=== PATIENT | female | born 1970 | race American Indian/Alaskan Native ===

== ENCOUNTER 2018-01-16 06:53 | Day surgery (SDC) | payer BC, OTHER ==
[~2018-01-16 06:53] MED LIST: ADRENALIN IV ONE; NACL 0.9% IR ONE
[2018-01-16] MEDS ORDERED: DIPRIVAN 10 MG/ML IV ONE (07:40)
[2018-01-16] MEDS ORDERED: DILAUDID ONE (07:42)
[2018-01-16] MEDS ORDERED: XYLOCAINE CARDIAC IV ONE (07:46)
--- NOTE | 2018-01-16 08:19 | Anesthesia Consultation ---
Anesthesia Consult and Med Hx Date of service: 01/16/18 - Airway Anesthetic Teeth Evaluation: Good, Partials ROM Head & Neck: Adequate Mental/Hyoid Distance: Adequate Mallampati Class: Class I Intubation Access Assessment: Good - Pulmonary Exam CTA: Yes - Cardiac Exam Cardiac Exam: RRR - Pre-Operative Health Status ASA Pre-Surgery Classification: ASA3 Proposed Anesthetic Plan: General - Pre-Anesthesia Comment Pre-Anesthesia Comments: upper partial - Pulmonary Hx Smoking: No Hx Asthma: No Hx Respiratory Symptoms: No SOB: No COPD: No Home Oxygen Therapy: No Hx Pneumonia: Yes (2013- SCAR TISSUE RIGHT LUNG) Hx Sleep Apnea: No (YUSUF PRE SCREEN LOW RISK) - Cardiovascular System Hx Hypertension: Yes (X 15 YRS) - Central Nervous System Hx Seizures: No 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) Hx Back Pain: Yes (NECK AND BACK PAIN) Hx Psychiatric Problems: Yes (HALLUCINATIONS) - Gastrointestinal Hx Ulcer: No Hx Gastroesophageal Reflux Disease: No - Endocrine Hx Renal Disease: No Hx Cirrhosis: No (HEPATIC ANGIOENDOTHELIOMA / LIVER DISEASE) Hx Liver Disease: Yes Hx Insulin Dependent Diabetes: No Hx Non-Insulin Dependent Diabetes: No Hx Thyroid Disease: No - Hematic Hx Anemia: Yes Hx Sickle Cell Disease: No - Other Systems Hx 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
[2018-01-16] MEDS ORDERED: LACTATED RINGERS 1,000 ML IV SCH (08:34)
[2018-01-16] MEDS ORDERED: SUBLIMAZE ONE (08:55)
[2018-01-16] MEDS ORDERED: ANCEF/STERILE WATER 2 GM/20 ML IV NR (09:00)
[2018-01-16] MEDS ORDERED: VERSED IV NR (09:26)
[2018-01-16] MEDS ORDERED: XYLOCAINE 1% 20 mL INFILTRATI SCH (09:30)
[2018-01-16] MEDS ORDERED: ADRENALIN ONE (09:45)
[2018-01-16] MEDS ORDERED: ADRENALIN IV ONE (09:57)
[2018-01-16] MEDS ORDERED: NACL 0.9% IR ONE (09:57)
[2018-01-16] MEDS ORDERED: NEOSTIGMINE ONE (11:24)
[2018-01-16] MEDS ORDERED: ROBINUL ONE (11:24)
[2018-01-16] MEDS ORDERED: ZOFRAN ONE (11:24)
--- NOTE | 2018-01-16 11:38 | Short Stay Summary ---
Short Stay Documentation Date of service: 01/16/18 - History H&P: obtained from office - Allergies and Medications Current Medications: Allergies adhesive tape Allergy (Verified 06/02/16 16:21) Hives oxycodone HCl [From Percocet] Allergy (Verified 06/02/16 16:21) Hives Home Medications Medication Instructions Recorded Confirmed Last Taken Type traMADol [Ultram 50 MG tab] 50 mg PO Q6HR PRN #30 tablet 03/06/16 01/09/1801/15 Rx ALPRAZolam [Xanax Xr] 2 mg PO PRN PRN 01/09/18 01/09/18 01/15/18 History Aspirin [Lo-Dose Aspirin EC] 81 mg PO DAILY 01/09/18 01/09/18 01/15/18 History AtorvaSTATin [Lipitor] 20 mg PO QHS 01/09/18 01/09/18 01/15/18 History FLUoxetine HCL [PROzac] 80 mg PO QDAY 01/09/18 01/09/18 01/15/18 History Ibuprofen [Advil 100 MG tab] 200 mg PO Q6H PRN 01/09/18 01/16/18 2 Weeks Ago History ~01/02/18 Metoprolol [Lopressor TAB] 100 mg PO QDAY 01/09/18 01/16/18 01/16/18 06:00 History Pantoprazole [Protonix] 40 mg PO QDAY 01/09/18 01/16/18 01/16/18 06:00 History Zolpidem [Ambien] 10 mg PO PRN PRN 01/09/18 01/16/18 01/14/18 History buPROPion SR [Wellbutrin Sr] 300 mg PO QAM 01/09/18 01/09/18 01/15/18 History chlorproMAZINE [Thorazine] 25 mg PO Q4H PRN 01/09/18 01/09/18 Unknown History Active Medications Cefazolin Sodium (Ancef/Sterile Water 2 Gm/20 Ml) 2 gm IV PREOP NR Stop: 01/16/18 23:59 Lactated Ringer's (Lactated Ringers) 1,000 mls @ 42 mls/hr IV DIRECT FREDO Last Admin: 01/16/18 09:00 Dose: 42 mls/hr Lidocaine (Xylocaine 1% 20 Ml) 20 ml INFILTRATI ONCE FREDO Stop: 01/16/18 23:59 Midazolam HCl (Versed) 2 mg IV PREOP NR Stop: 01/16/18 23:59 Last Admin: 01/16/18 09:31 Dose: 2 mg - Brief post op/procedure progress note Date of procedure: 01/16/18 Pre-op diagnosis: persistent left shoulder pain, ac joint arthritis, impingement , partial rot Post-op diagnosis: other (persistent left shoulder pain, ac joint arthritis, extensive subacromial bursitis, partial rotator cuff tear) Procedure: left shoulder arthroscopy subacromial decompression, distal clavicle excision, debriedement extensive subacromial bursitis, debriedement partial rotator cuff tear Anesthesia: GETA Findings: partial articular sided rotator cuff tear, extensive subacromial bursitis, impingement Surgeon: SHANTE STUART Senior Sous Chef: FRANKLYN PANCHAL III Estimated blood loss: minimal Pathology: none Condition: stable - Hospital course Hospital course: no perioperative complications - Disposition Condition at discharge: Good Disposition: DC-01 TO HOME OR SELFCARE Short Stay Discharge Plan Follow up with: KO RUANO MD [Primary Care Provider] - 7 Days
[2018-01-16 18:28] VITALS: BP 102/69
--- NOTE | 2018-01-17 00:09 | Operative Report ---
PREOPERATIVE DIAGNOSES: Persistent left shoulder pain, acromioclavicular joint arthritis, possible rotator cuff tear. POSTOPERATIVE DIAGNOSES: Persistent left shoulder pain, advanced acromioclavicular joint arthritic changes with type 3 acromion causing severe impingement upon rotator cuff, partial thickness articular-sided rotator cuff tear involving approximately 10% of the width of the supraspinatus tendon, extensive subacromial bursitis. PROCEDURE: Left shoulder arthroscopy, subacromial decompression, distal clavicle excision, debridement of partial thickness rotator cuff tear, debridement of extensive subacromial bursitis. SURGEON: Etienne Davies M.D. SERVICE WORKER: Lemuel Esquivel M.D. ANESTHESIA: General plus an interscalene block to the operative left upper extremity. PREOPERATIVE ANTIBIOTICS: Ancef 2 grams IV within 1 hour of skin incision. DVT PROPHYLAXIS: Open toe, thigh high compression stockings and SCD pumps to bilateral lower extremities. COMPLICATIONS: None. PREOPERATIVE HISTORY AND PHYSICAL: This is a 47-year-old female who has had persistent and progressively worsening left shoulder pain, which has failed to improve despite extensive nonoperative treatment. The pain is markedly limiting her day-to-day activities. MRI scan was performed, which was positive for acromioclavicular joint arthritic changes, there was a partial thickness rotator cuff tear. The patient's MRI findings and diagnosis were discussed at length and after making sure the patient understood her diagnosis and all of her questions were answered, we then discussed treatment alternatives of surgical and nonsurgical including risks and benefits of both. After a long lengthy discussion, the patient opted to proceed with operative intervention. This will entail a left shoulder arthroscopy, subacromial decompression, distal clavicle excision, possible rotator cuff repair and surgery as indicated. The risks of which were discussed to include but not exclusive of infection, blood loss, nerve damage, loss of range of motion, persistent pain. Again, the patient understood all of her questions answered. She wished to proceed with operative intervention. OPERATIVE PROCEDURE: The patient was in the proper holding area at which point informed consent was reviewed and appropriate left upper extremity was identified and then marked. Anesthesia then performed and an interscalene block to the left upper extremity. After confirmation of adequate analgesia of the left upper extremity, the patient was then brought back to the operating room and placed supine on the standard operating room table with a beach chair positioner, which was already in place. General anesthesia was then administered and an endotracheal tube was inserted. After confirmation of adequate general anesthesia and checking appropriate placement of endotracheal tube, we then made sure that all bony prominences were well padded, that there were no wrinkles in the compression stockings on bilateral lower extremities and SCD pumps were applied to bilateral lower extremities. A pillow was placed beneath the posterior aspect of bilateral thighs, placed in slight flexion of the hips and knees, making sure the popliteal fossa was free and clear. The patient was then sat up in the beach chair position using the beach chair position, which was already in place and her hip was secured in a nice position. The well right arm was secured in a neutral position at the patient's side with the aid of the well arm carranza. The left upper extremity was then examined under anesthesia. The patient was seen to have full range of motion and there was no evidence of instability. Following the examination under anesthesia, the left upper extremity was then prepped and draped in the usual sterile fashion. After prepping and draping, a timeout was called and appropriate left upper extremity was identified, which again had been marked in the preoperative holding area. We began our procedure by first making a standard posterior portal with #15 blade. Once the portal was established, the cannula with the blunt trocar was inserted into the intra-articular aspect of the glenohumeral joint. This went without difficulty or damage to articular cartilage. Once in place, the arthroscopic camera was placed in the anterior aspect of the shoulder joint where we established an anterior portal by first inserting an 18 gauge spinal needle with the subscap and biceps tendon under direct arthroscopic visualization. Once confirmed to be in appropriate position, a 15 blade was then used to establish anteromedial portal. Once the portals were established, a blunt trocar was inserted to widen the portal site for an arthroscopic probe. We began diagnostic arthroscopy. In the anterior aspect of the shoulder joint, the patient had a normal subscapularis tendon and normal middle glenohumeral ligament. There were no tears in the anterior, superior, or posterior labrum, which was seen to be intact and stable when probed. The bicep tendon was seen to be intact. Next, the shoulder was in its normal relation. There was mild grade 1 articular cartilage loss ay central aspect of the glenoid. There were no loose bodies in the axillary recess. Inspection of the rotator cuff showed to be partial thickness tearing of the supraspinatus tendon encompassing approximately 10% of the width of the tendon. This was gently debrided using a 4.0 meniscal shaver. The arthroscopic pump was then turned off to make there was good hemostasis. Once this was confirmed, extraneous fluid was suctioned from the glenohumeral joint using the arthroscopic cannula, following this, all the arthroscopic instrumentation was removed and then placed in subacromial space. Once in subacromial space, we saw there was severe extensive subacromial bursitis. A third incision was made in the lateral aspect of the shoulder in line with the distal clavicle away from axillary nerve. Once the incision was made, the extensive subacromial size was debrided using a 4.0 meniscal shaver and hemostasis was achieved with the Arthrocare ablation wand. Once completed, the arm was placed in full range of motion, under direct arthroscopic visualization we saw there was severe impingement of the rotator cuff up on undersurface of the acromion and the distal clavicle. The soft tissue was then removed from the undersurface of the acromion using Arthrocare ablation wand. Once completed using the 4.0 hooded barrel bur. We carried out subacromial decompression in a standard fashion, went from inferior, superior, posterior, anterior making sure not to leave any residual anterior hook. Once completed, we turned our attention to the distal clavicle, which was also seen to be arthritic. Using a 4.0 hooded barrel bur we carried out distal clavicle excision to a depth of approximately 6-8 mm. Once completed, the arm was again placed through a full range of motion under direct arthroscopic visualization. We saw there was no further impingement of the rotator cuff upon undersurface of the acromion or the distal clavicle. We turned our attention to the bursal side of the rotator cuff, which was seen to be intact and stable through its entirety when probed. The arthroscopic pump was then turned off making sure there was good hemostasis. Once this was confirmed, the extraneous fluid was suctioned from the subacromial space using arthroscopic cannula. Following this, all the arthroscopic instrumentation was removed. The 3 portal sites were closed with 3-0 nylon in simple fashion. Adaptic, 4 x 4s, ABD, paper tape, a small abduction sling was applied along with a Donjoy Cryo/Cuff blanket. The patient was sat down from the chair in the supine position, was awakened from general anesthesia without complication and then taken to recovery room in stable condition. Standard postoperative orders were written. JOB# [id number] ALISON/MIKE
== END 2018-01-16 14:00 | disposition home or self-care (01) ==
LOC: OR 06:53
PROVIDERS: ATTEND Orthopaedic Surgery
DX: M19.012 Primary osteoarthritis, left shoulder (principal); M75.42 Impingement syndrome of left shoulder; M75.102 Unspecified rotator cuff tear or rupture of left shoulder, not specified as traumatic; M71.9 Bursopathy, unspecified; I10 Essential (primary) hypertension; I69.954 Hemiplegia and hemiparesis following unspecified cerebrovascular disease affecting left non-dominant side; E66.9 Obesity, unspecified; Z85.830 Personal history of malignant neoplasm of bone; Z92.3 Personal history of irradiation
CPT/HCPCS: 29822; 29824; 29826; 64450; 81025; A4217; J0171; J0690; J2001; J2250; J2405; J2704; J2710; J3010; J7120; L1830; J1170